=== PATIENT | female | born 1950 | race African-American/Black ===

== ENCOUNTER → 2021-02-16 | Outpatient (CLI) | payer OTHER ==
[~2021-02-16] MED LIST: ALTACE10 M1 PO; CRESTOR20 MG PO; ZETIA10 MG PO
== END ==
LOC: CAT 08:47
PROVIDERS: ATTEND Family Medicine
DX: Z12.2 Encounter for screening for malignant neoplasm of respiratory organs (principal)

== ENCOUNTER → 2021-02-16 | Outpatient (CLI) | payer OTHER | LOC: CAT 08:01 | PROVIDERS: ATTEND Family Medicine | DX: Z13.6 Encounter for screening for cardiovascular disorders (principal); I25.10 Atherosclerotic heart disease of native coronary artery without angina pectoris; E78.00 Pure hypercholesterolemia, unspecified ==